=== PATIENT | male | born 1935 | race Caucasian/White ===

== ENCOUNTER 2019-01-17 19:04 | Inpatient (IN) | payer MEDICARE, BC ==
[~2019-01-17] VITALS: Ht 175.3 cm; Wt 71.2 kg
[2019-01-17 09:45] VITALS: BP 157/70
[2019-01-17] MEDS ORDERED: IV NS 0.9% 500 ML BAG IV ONE (19:30)
--- NOTE | 2019-01-17 19:33 | NUR ---
[id number] FROM HOME, WITNESSED SYNCOPAL EPISODE, +KO ON THE COUCH, NO FALL, BG 136. TO ER BED 4 VSS SEEN BY MD ORDERS RECEIVED AND CARRIERD OUT. PT IN COMFORTABLE POSITION, NO COMPLAINT OF PAIN DIZZINES OR DISCOMOFRT AT THIS TIME, CONNECTED TO CHOKE SETTER.
[2019-01-17 19:34] LABS: BASOPHILS # (AUTO) 0.2 /CMM (0.0-0.2); BASOPHILS % (AUTO) 2.6 % (0.0-2.0); EOSINOPHILS % (AUTO) 2.4 % (0.0-6.0); HEMATOCRIT 38 % (39-51); HEMOGLOBIN 12.7 g/dL (13.5-17.5); LYMPHOCYTES # (AUTO) 2.6 /CMM (0.8-4.8); LYMPHOCYTES % (AUTO) 37.9 % (20.0-44.0); MEAN CORPUSCULAR HGB CONC 34 g/dl (31.0-36.0); MEAN CORPUSCULAR VOLUME 92 fL (80-96); MONOCYTES # (AUTO) 0.8 /CMM (0.1-1.30); MONOCYTES % (AUTO) 11.4 % (2.0-12.0); NEUTROPHILS # (AUTO) 3.1 /CMM (1.8-8.9); NEUTROPHILS % (AUTO) 45.7 % (43.0-81.0); PLATELET COUNT (AUTO) 207 /CMM (150-450); RED BLOOD CELL COUNT(AUTO) 4.08 MIL/uL (4.5-6.0); WHITE BLOOD COUNT (AUTO) 6.9 K/uL (4.3-11.0)
[2019-01-17 19:39] LABS: CALCIUM, SERUM 9.1 mg/dL (8.5-10.1); CARBON DIOXIDE 28 mmol/L (21-32); CHLORIDE 103 mmol/L (98-107); GLUCOSE 127 mg/dL (74-106); POTASSIUM 3.8 mmol/L (3.5-5.1); SODIUM SERUM 138 mmol/L (136-145); UREA NITROGEN, BLOOD 28 mg/dL (7-18)
[2019-01-17 19:45] LABS: ALANINE AMINOTRANSFERASE 20 U/L (12-78); ALBUMIN 3.6 g/dL (3.4-5.0); ALKALINE PHOSPHATASE 81 U/L (46-116); ASPARTATE AMINOTRANSFERASE 22 U/L (15-37); BILIRUBIN,DIRECT 0.1 mg/dL (0.0-0.2); BILIRUBIN,TOTAL 0.2 mg/dL (0.2-1.0); TOTAL PROTEIN, SERUM 7.6 g/dL (6.4-8.2)
[2019-01-17] MEDS ORDERED: CALC600T12 PO (20:29)
[2019-01-17] MEDS ORDERED: MULT1TAB73 PO (20:29)
[2019-01-17] MEDS ORDERED: ASPI-1169 PO (20:30)
[2019-01-17] MEDS ORDERED: ATOR10TA PO (20:30)
[2019-01-17] MEDS ORDERED: MEMA10TA PO (20:31)
[2019-01-17] MEDS ORDERED: FOLI1TAB16 PO (20:31)
[2019-01-17] MEDS ORDERED: AMLO10TA4 PO (20:31)
[2019-01-17] MEDS ORDERED: MAGN400T6 PO (20:32)
[2019-01-17] MEDS ORDERED: DONE5TAB7 PO (20:32)
[2019-01-17] MEDS ORDERED: ETAN50SY SUBCUT (20:33)
[2019-01-17] MEDS ORDERED: IV NS 0.9% 1,000 ML IV PRN (20:53)
[2019-01-17] MEDS ORDERED: TAMS-12 PO (20:54)
[2019-01-17] MEDS ORDERED: ONDANSETRON HCL/PF 4 MG/2 ML VIAL IVP PRN (21:00)
[2019-01-17] MEDS ORDERED: ACETAMINOPHEN 325 MG TABLET PO PRN (21:00)
[2019-01-17] MEDS ORDERED: MORPHINE SULFATE INJ 2 MG/ML DISP.SYRIN IV PRN (21:00)
[2019-01-17] MEDS ORDERED: HYDROCODONE/APAP 5/325MG 1 EACH TABLET PO PRN (21:00)
--- NOTE | 2019-01-17 21:16 | NUR ---
called in report to marilu adams
--- NOTE | 2019-01-17 21:20 | NUR ---
PT TAKEN TO CT
--- NOTE | 2019-01-17 21:30 | NUR ---
PT BACK FROM CT
[2019-01-17 21:37] LABS: BAND % (MANUAL) 1 % (0.0-5.0); EOSINOPHILS % (MANUAL) 1 % (0-4); LYMPHOCYTES % (MANUAL) 24 % (16-48); MONOCYTES % (MANUAL) 18 % (0-11.0); NEUTROPHILS % (MANUAL) 55 (42-76); REACTIVE LYMPHOCYTES 1 % (0-0)
[2019-01-17 21:45] VITALS: BP 157/70
--- NOTE | 2019-01-17 21:50 | NUR ---
PT TRANSPORTED TO FLOOR VIA [facility] PROTOCOL
[2019-01-17 22:00] VITALS: BP_SYST 101; BP_SYST 148; BP_SYST 157; BP_DIAS 65; BP_DIAS 70; BP_DIAS 74
--- NOTE | 2019-01-17 22:00 | NUR ---
HOOD FITTERFOOD TECHNICIAN NOTES RECEIVED PATIENT FROM ER VIA [facility] ACCOMPANIED BY ER STAFFS AND FAMILIES. ALERT AND ORIENTED X 3. VERBALLY RESPONSIVE AND ABLE TO FOLLOW DIRECTIONS. REQUESTED IF HE CAN GO TO THE RESTROOM, ASSISTED ON WALKING. BOWEL AND BLADDER CONTINENT, HAD A BOWEL MOVEMENT WITH FORMED DARK BROWN STOOL SEEN. URINE CLEAR YELLOW. ASSISTED BACK TO BED. BREATHING REGULAR AND UNLABORED ON ROOM AIR. LEFT HAND G18 AND RIGHT AC G20 IV LINES INTACT AND PATENT, FLUSHING WELL WITH NO BLEEDING OR S/S OF INFECTION/INFILTRATION NOTED. STARTED ON IV NS AT 75CC/HR, INFUSING WELL. BODY ASSESSMENTS DONE, PHOTO TAKEN. KEPT ON THE CHART. ATTACHED ON DIRECT SUPPORT PROFESSIONAL WITH SINUS BRADYCARDIA AT 59bpm. BELONGINGS CHECKED AND ACCOUNTED FOR BY ON BEDSIDE. BED LOW AND LOCKED ON SEMI FOWLERS POSITION. CALL LIGHT IN REACH. WILL CONTINUE TO MONITOR.
[2019-01-17] MEDS: TAMSULOSIN 0.4 MG CAP.SR.24H PO SCH (22:14)
[2019-01-18] VITALS (9 sets, daily range): BP systolic 96–152; BP diastolic 49–68
--- NOTE | 2019-01-18 04:00 | NUR ---
YOKER NOTES REASSESSED ORTHOSTATIC BLOOD PRESSURES: SUPINE 119/57, SITTING 129/68, STANDING 96/49. NO COMPLAINTS OF DIZZINESS, PAIN OR DISCOMFORT REPORTED. ASSISTED TO GO TO THE RESTROOM. WILL CONTINUE TO MONITOR.
--- NOTE | 2019-01-18 06:35 | NUR ---
FOREIGN LANGUAGE INSTRUCTOR CLOSING NOTES PATIENT IN BED, ALERT AND ORIENTED X 3. VERBALLY RESPONSIVE AND ABLE TO FOLLOW DIRECTIONS. BREATHING REGULAR AND UNLABORED ON ROOM AIR. RIGHT AC G20 IV LINE INTACT AND PATENT, INFUSING WELL WITH NO BLEEDING OR S/S OF INFECTION/INFILTRATION NOTED. MAINTAINED ON RESPITE COORDINATOR WITH NSR AT 68bpm. NO COMPLAINTS OF DIZZINESS, PAIN/DISCOMFORT REPORTED WITHIN THE SHIFT. BED LOW AND LOCKED ON SEMI FOWLERS POSITION. CALL LIGHT IN REACH. WILL ENDORSE TO MORNING SHIFT FOR TIEN.
[2019-01-18 06:54] LABS: BASOPHILS % (AUTO) 0.4 % (0.0-2.0); EOSINOPHILS % (AUTO) 1.3 % (0.0-6.0); HEMATOCRIT 34 % (39-51); HEMOGLOBIN 11.9 g/dL (13.5-17.5); LYMPHOCYTES # (AUTO) 1.5 /CMM (0.8-4.8); MEAN CORPUSCULAR HGB CONC 35 g/dl (31.0-36.0); MEAN CORPUSCULAR VOLUME 92 fL (80-96); MONOCYTES % (AUTO) 13.2 % (2.0-12.0); NEUTROPHILS # (AUTO) 4.9 /CMM (1.8-8.9); NEUTROPHILS % (AUTO) 65.1 % (43.0-81.0); PLATELET COUNT (AUTO) 190 /CMM (150-450); RED BLOOD CELL COUNT(AUTO) 3.74 MIL/uL (4.5-6.0); WHITE BLOOD COUNT (AUTO) 7.5 K/uL (4.3-11.0)
--- NOTE | 2019-01-18 07:00 | NUR ---
MARINE MACHINIST NOTES PATIENT IN BED ALERT ORIENTED X 3. NO ACUTE DISTRESS NOTED. NO SOB NOTED. BREATHING UNLABORED. IV ACCESS PATENT AND INTACT, NO REDNESS OR SWELLING NOTED. NO BLEEDING NOTED. SAFETY MEASURES IN PLACE. CALL LIGHT WITHIN REACH. WILL CONTINUE TO MONITOR ACCORDINGLY.
[2019-01-18 07:11] LABS: CHOLESTEROL 133 mg/dL (<200); HDL CHOLESTEROL 41 mg/dL (40-60); LDL 66 mg/dL (0-99); THYROID STIMULATING HORMONE 1.538 uIU/mL (0.358-3.74); TRIGLYCERIDES 186 mg/dL (30-150)
[2019-01-18 07:16] LABS: CALCIUM, SERUM 8.3 mg/dL (8.5-10.1); CARBON DIOXIDE 24 mmol/L (21-32); CHLORIDE 107 mmol/L (98-107); CREATININE 1.6 mg/dL (0.6-1.3); GLUCOSE 106 mg/dL (74-106); MAGNESIUM 2.4 mg/dL (1.8-2.4); PHOSPHORUS 3.3 mg/dL (2.5-4.9); POTASSIUM 4.4 mmol/L (3.5-5.1); SODIUM SERUM 140 mmol/L (136-145); UREA NITROGEN, BLOOD 23 mg/dL (7-18)
[2019-01-18] MEDS: FOLIC ACID 1 MG TABLET PO SCH (08:39)
[2019-01-18] MEDS: MULTIVITAMINS,THERAGRAN 1 UDTAB TABLET PO SCH (08:39)
[2019-01-18] MEDS: ASPIRIN 81 MG TAB.CHEW PO SCH (08:39)
[2019-01-18] MEDS: ATORVASTATIN 10 MG TABLET PO SCH (08:40)
[2019-01-18] MEDS: MEMANTINE HCL 5 MG TABLET PO SCH ×2 (08:40→16:38)
[2019-01-18] MEDS: AMLODIPINE BESYLATE 10 MG TABLET PO SCH (08:40)
[2019-01-18] MEDS ORDERED: DONEPEZIL 5 MG TABLET PO SCH (18:00)
--- NOTE | 2019-01-18 19:00 | NUR ---
PRINTING AND STAMPING SUPERVISOR NOTES PATIENT IN BED ALERT ORIENTED X 3. NO ACUTE DISTRESS NOTED. NO SOB NOTED. BREATHING UNLABORED. IV ACCESS PATENT AND INTACT, NO REDNESS OR SWELLING NOTED. DUE MEDICATIONS GIVEN. NO ASE NOTED. NEEDS ATTENDED AND ANTICIPATED. KEPT CLEAN DRY AND CONFORTABLE. SAFETY MEASURES IN PLACE. CALL LIGHT WITHIN REACH. WILL ENDORSE TO NIGHT NURSE FOR CONTINUITY OF CARE.
--- NOTE | 2019-01-18 19:30 | NUR ---
SHEET METAL PRODUCTION WORKER NOTES RECEIVED ON BED A/O X4,BREATHING REGULAR,NOT IN ANY FORM DISTRESS,IVF INFUSING AND NOTED LEAKING ON SITE.AMBULATE WITH STEADY GAIT.CALL LIGHT IN REACH,NEEDS ANTICIPATED.
--- NOTE | 2019-01-18 19:35 | NUR ---
CAGER OPERATOR NOTES NEW SALINE LOCK PLACE ON RIGHT FORE ARM #22,SAME IVF INFUSING AT THIS TIME.
--- NOTE | 2019-01-18 20:31 | NUR ---
WHIPPER BEATER NOTES SR-69 ON TELE MONITOR
[2019-01-18] MEDS: TAMSULOSIN 0.4 MG CAP.SR.24H PO SCH ×2 (21:11→21:18)
--- NOTE | 2019-01-18 21:54 | NUR ---
CREEL SELECTOR NOTES PATIENT REFUSED FLOMAX
--- NOTE | 2019-01-19 01:00 | NUR ---
TUBE CARRIER NOTES AWAKE,HE WENT TO THE RESTROOM TO PEE.
--- NOTE | 2019-01-19 01:15 | NUR ---
SOFTWARE RELEASE MANAGER NOTES TOOK PICTURE ON BOTH ARMS,REFUSED FURTHER BODY CHECKED AND PICTURES
--- NOTE | 2019-01-19 01:15 | NUR ---
SOUND RANGING CREWMEMBER NOTES HE PULLET OUT IV TUBINGS,OFFERED TO GAVE A NEW ONE BUT REFUSED
--- NOTE | 2019-01-19 04:30 | NUR ---
COLLABORATING SUPERVISING PHYSICIAN NOTES REFUSED VITAL SIGNS THIS TIME
--- NOTE | 2019-01-19 05:55 | NUR ---
CALL SPECIALIST NOTES SLEPT WITH INTERVALS,NO IV ACCESS,REFUSED TO HAVE A NEW SALINE LOCK.REFUSED 4AM VITAL SIGNS.IN NO ACUTE DISTRESS.WILL ENDORSE TO DAY NURSE FOR TIEN.
--- NOTE | 2019-01-19 06:03 | NUR ---
BARREL MAKER NOTES REFUSED BLOOD DRAW AT THIS TIME.
--- NOTE | 2019-01-19 06:15 | NUR ---
NUMBERER AND WIRER NOTES TOOK OFF TELE BOX.HE DRESSED UP AND HE WANTS TO LEAVE WITHOUT BEING SEEN BY HOSPITALIST.CALLED NAME ROSARIO AND SPOKE TO PATIENT BELEN,WILL COME TO THE HOSPITAL AND WAIT FOR HOSPITALIST TO SEE PATIENT AND FOR POSSIBLE DISCHARGE.IN ROOM RIGHT NOW WAITING FOR THE .NO DISTRESS.NO SALINE LOCK,NO TELE MONITOR.STILL REFUSED VITAL SIGNS.
--- NOTE | 2019-01-19 07:30 | NUR ---
COMPENSATION VICE PRESIDENT OPENING NOTES RECEIVED PATIENT SITTING ON A CHAIR ON SIDE OF THE BED. NO IV ACCESS, NOT ON TELE MONITOR, NO ID BAND, PER CERTIFIED NURSING ATTENDANT NURSE, PATIENT REMOVED IT AND WANTS TO GO HOME. PATIENT STATES THAT HE WANTS TO GO HOME, JUST WAITING FOR HIS . MD AWARE. WILL CONTINUE TO MONITOR.
[2019-01-19 08:00] VITALS: BP 163/68
[2019-01-19] MEDS: FOLIC ACID 1 MG TABLET PO SCH (09:00)
[2019-01-19] MEDS: MULTIVITAMINS,THERAGRAN 1 UDTAB TABLET PO SCH (09:00)
[2019-01-19] MEDS: MEMANTINE HCL 5 MG TABLET PO SCH (09:00)
[2019-01-19] MEDS: ASPIRIN 81 MG TAB.CHEW PO SCH (09:00)
[2019-01-19] MEDS: AMLODIPINE BESYLATE 10 MG TABLET PO SCH (09:00)
[2019-01-19] MEDS: ATORVASTATIN 10 MG TABLET PO SCH (09:00)
[2019-01-19 10:16] VITALS: BP_SYST 130; BP_SYST 147; BP_SYST 99; BP_DIAS 52; BP_DIAS 64; BP_DIAS 69
--- NOTE | 2019-01-19 11:45 | NUR ---
SUPERVISOR HOME ECONOMICS NOTES PATIENT DISCHARGED IN STABLE CONDITION. A/O X4. ABLE TO MAKE NEEDS KNOWN. V/S TAKEN, STABLE AND RECORDED. RECEIVED PATIENT WITHOUT IV ACCESS AND NO ARM BAND. PATIENT REMOVED IT, PER PAPER ROLL MACHINE OPERATOR NURSE. REFUSE SKIN ASSESSMENT. ALL BELONGINGS CHECKED AND SIGNED. HEALTH TEACHINGS/DISCHARGED INSTRUCTIONS GIVEN AND VERBALIZED UNDERSTANDING. PATIENT LEFT UNIT AMBULATORY WITH , LEFT IN NO ACUTE SIGNS OF DISTRESS. CHARGE NURSE AWARE OF DISCHARGE.
[2019-01-23] MEDS ORDERED: ETANERCEPT 50 MG SQ SCH (09:00)
== END 2019-01-19 11:39 | disposition home or self-care (01) | DRG 312 ==
LOC: ER 19:08 → TELE 21:27 → MED 01-19 08:30
PROVIDERS: ADMIT Nurse Practitioner Acute Care
DX: I95.1 Orthostatic hypotension (principal); N17.0 Acute kidney failure with tubular necrosis; J90 Pleural effusion, not elsewhere classified; N13.2 Hydronephrosis with renal and ureteral calculous obstruction; M06.9 Rheumatoid arthritis, unspecified; E78.5 Hyperlipidemia, unspecified; F03.90 Unspecified dementia, unspecified severity, without behavioral disturbance, psychotic disturbance, mood disturbance, and anxiety; Z85.46 Personal history of malignant neoplasm of prostate; Z90.79 Acquired absence of other genital organ(s); Z87.442 Personal history of urinary calculi; Z82.3 Family history of stroke; Z79.899 Other long term (current) drug therapy; Z79.82 Long term (current) use of aspirin; E86.1 Hypovolemia; K57.90 Diverticulosis of intestine, part unspecified, without perforation or abscess without bleeding; T44.6X5A Adverse effect of alpha-adrenoreceptor antagonists, initial encounter; Y92.9 Unspecified place or not applicable
CPT/HCPCS: 36415; 71045-TC; 80048-TC; 80061-TC; 80076-TC; 83735-TC; 84100-TC; 84443-TC; 84484-TC; 85025-TC; 87081-TC; 93307-TC; 97116-TC; 97530-TC; G0378; J7030

== ENCOUNTER 2019-04-07 12:35 | Inpatient (IN) | payer MEDICARE, BC ==
[~2019-04-07] VITALS: Ht 175.3 cm; Wt 73.9 kg
[~2019-04-07 12:35] MED LIST: AMLO10TA4 PO; ASPI-1169 PO; ATOR10TA PO; CALC600T12 PO; DONE5TAB7 PO; ETAN50SY SQ; FOLI1TAB16 PO; MAGN400T8 PO; MEMA10TA PO; MULT1TAB73 PO
--- NOTE | 2019-04-07 13:09 | NUR ---
patient bib c/o "Has been in the hospital recently since then been weak having balance problems this am worse-fell down in bathroom at 930am. Arm numb yesterday". On room air,breathing evenly and unlabored. connected to the monitor and pulse ox. kept comfortable, will continue to monitor accordingly.
[2019-04-07 13:18] LABS: BASOPHILS # (AUTO) 0.1 /CMM (0.0-0.2); BASOPHILS % (AUTO) 0.7 % (0.0-2.0); EOSINOPHILS % (AUTO) 0.2 % (0.0-6.0); HEMATOCRIT 32 % (39-51); HEMOGLOBIN 10.7 g/dL (13.5-17.5); LYMPHOCYTES # (AUTO) 1.2 /CMM (0.8-4.8); LYMPHOCYTES % (AUTO) 10.2 % (20.0-44.0); MEAN CORPUSCULAR HGB CONC 33 g/dl (31.0-36.0); MEAN CORPUSCULAR VOLUME 92 fL (80-96); MONOCYTES # (AUTO) 1.7 /CMM (0.1-1.30); MONOCYTES % (AUTO) 14.2 % (2.0-12.0); NEUTROPHILS # (AUTO) 9.2 /CMM (1.8-8.9); NEUTROPHILS % (AUTO) 74.7 % (43.0-81.0); PLATELET COUNT (AUTO) 423 /CMM (150-450); RED BLOOD CELL COUNT(AUTO) 3.49 MIL/uL (4.5-6.0); WHITE BLOOD COUNT (AUTO) 12.3 K/uL (4.3-11.0)
[2019-04-07 13:25] LABS: CALCIUM, SERUM 9.3 mg/dL (8.5-10.1); CARBON DIOXIDE 27 mmol/L (21-32); CHLORIDE 102 mmol/L (98-107); CREATININE 1.1 mg/dL (0.6-1.3); GLUCOSE 111 mg/dL (74-106); POTASSIUM 4.2 mmol/L (3.5-5.1); SODIUM SERUM 137 mmol/L (136-145); UREA NITROGEN, BLOOD 21 mg/dL (7-18)
[2019-04-07 13:32] LABS: ALANINE AMINOTRANSFERASE 97 U/L (12-78); ALBUMIN 2.4 g/dL (3.4-5.0); ALKALINE PHOSPHATASE 126 U/L (46-116); ASPARTATE AMINOTRANSFERASE 67 U/L (15-37); BILIRUBIN,DIRECT 0.1 mg/dL (0.0-0.2); BILIRUBIN,TOTAL 0.4 mg/dL (0.2-1.0); TOTAL PROTEIN, SERUM 7.3 g/dL (6.4-8.2)
[2019-04-07] MEDS ORDERED: UBID100C13 PO (13:34)
[2019-04-07] MEDS ORDERED: MEMA28CA5 PO (13:34)
[2019-04-07] MEDS ORDERED: ASPIRIN 325 MG TABLET ONE (13:45)
[2019-04-07] MEDS ORDERED: ASPIRIN 325 MG TABLET PO ONE (14:00)
[2019-04-07 14:05] LABS: CHOLESTEROL 101 mg/dL (<200); HDL CHOLESTEROL 36 mg/dL (40-60); LDL 54 mg/dL (0-99); TRIGLYCERIDES 92 mg/dL (30-150)
[2019-04-07] MEDS ORDERED: IV NS 0.9% 1,000 ML IV PRN (14:38)
[2019-04-07] MEDS ORDERED: ONDANSETRON HCL/PF 4 MG/2 ML VIAL IVP PRN (15:00)
[2019-04-07] MEDS ORDERED: MAG HYDROX/AL HYDROX/SIMETH 30 ML UDC PO PRN (15:00)
[2019-04-07] MEDS ORDERED: MAGNESIUM HYDROXIDE 30 ML UDC PO PRN (15:00)
[2019-04-07] MEDS ORDERED: ZOLPIDEM TARTRATE 5 MG TABLET PO PRN (15:00)
[2019-04-07] MEDS ORDERED: HYDROCODONE/APAP 5/325MG 1 EACH TABLET PO PRN (15:00)
[2019-04-07] MEDS ORDERED: ENOXAPARIN SODIUM 40 MG/0.4 ML DISP.SYRIN SQ SCH ×2 (15:00→21:00)
[2019-04-07] MEDS ORDERED: Z GUARD REMEDY 2 OZ OINT TP PRN (15:00)
[2019-04-07] MEDS ORDERED: ACETAMINOPHEN 325 MG TABLET PO PRN (15:00)
--- NOTE | 2019-04-07 15:01 | NUR ---
BED ASSIGNED 320-1
--- NOTE | 2019-04-07 15:15 | NUR ---
report given to Amberly WAITE for martita.
[2019-04-07 16:00] VITALS: BP 119/64
--- NOTE | 2019-04-07 16:05 | NUR ---
BENDING ROLL OPERATORSECURITY FLEX OFFICER NOTES Received Patient via gurney at this time. A/O x 4. VS stable with no acute distress. Breathing even and unlabored on room air with no respiratory distress. Denies pain. Skin assessment pictures taken and placed in chart. Telemonitor in place and patent reading SR with HR-65. 20g PIV on LFA clean, intact, patent and flushing well. Safety precautions in place. Bed locked and set to lowest position with side rails x 2 up. All needs rendered at this time. Call light within reach. Family at bedside. Will continue to monitor.
--- NOTE | 2019-04-07 16:15 | NUR ---
wheeled patient via gurney accompanied by RN and emt in no distress, Amberly RN at bedside to assume care
--- NOTE | 2019-04-07 19:40 | NUR ---
COVERAGE ANALYST CLOSING NOTES Patient awake and resting in bed. A/O x 4. VS stable with no acute distress. Breathing even and unlabored on room air with no respiratory distress. Denies pain. Telemonitor in place and patent reading SR with HR-63. 20g PIV on LFA clean, intact, patent and flushing well with NS infusing at 75ml/hr. Safety precautions in place. Bed locked and set to lowest position with side rails x 2 up. All needs rendered at this time. Call light within reach. Will endorse plan of care to oncoming shift.
--- NOTE | 2019-04-07 19:55 | NUR ---
TELE/RN OPENING NOTES RECEIVED PATIENT IN BED, ALERT, ORIENTED X 3 ABLE TO VERBALIZE NEEDS, RESPIRATIONS EVEN AND UNLABORED, SKIN WARM TO TOUCH, WATCHING TV, NO GRIMACE OR GUARDING, BELONGINGS AND CALL LIGHTS WITHIN REACH, RECEIVED ENDORSEMENT FROM AM RN FOR TIEN. WILL MONITOR, BED LOCK, CALL LIGHTS WITHIN REACH.
[2019-04-07 20:00] VITALS: BP 130/71
[2019-04-07 20:26] VITALS: BP 130/71
--- NOTE | 2019-04-07 20:51 | NUR ---
TELE/RN NOTES LOVENOX SQ TO ADMINISTER, VERIFIED WITH PHARMACY. PATIENT REQUESTING FOR AMBIEN TO HELP HIM SLEEP. TO ADMINISTER.
--- NOTE | 2019-04-07 23:34 | NUR ---
TELE/RN NOTES PATIENT PULLED OUT IV TWICE, WANTING TO GO HOME, WAS CONTACTED AND CALLED PATIENT WAS ABLE TO SPEAK WITH . PATIENT REFUSED IV FLUIDS AND HURRIEDLY WANT TO LEAVE, HAD REQUESTED AMBIEN FOR SLEEP EARLIER AND A NEW ADMISSION PATIENT CAME IN THE ROOM,BEHAVIOR IMPULSIVE. . VERBALIZED TO PATIENT HE HAS TO STAY IN HOSPITAL AND CAN NOT LEAVE, PATIENT VERBALIZED UNDERSTANDING , WILL MONITOR.
[2019-04-08] VITALS: BP 151/67
[2019-04-08 04:00] VITALS: BP 114/73
[2019-04-08 06:33] LABS: BASOPHILS # (AUTO) 0.1 /CMM (0.0-0.2); BASOPHILS % (AUTO) 0.7 % (0.0-2.0); EOSINOPHILS % (AUTO) 0.9 % (0.0-6.0); HEMATOCRIT 31 % (39-51); HEMOGLOBIN 10.4 g/dL (13.5-17.5); LYMPHOCYTES # (AUTO) 1.4 /CMM (0.8-4.8); LYMPHOCYTES % (AUTO) 16.8 % (20.0-44.0); MEAN CORPUSCULAR HGB CONC 34 g/dl (31.0-36.0); MEAN CORPUSCULAR VOLUME 90 fL (80-96); MONOCYTES # (AUTO) 1.2 /CMM (0.1-1.30); MONOCYTES % (AUTO) 14.4 % (2.0-12.0); NEUTROPHILS # (AUTO) 5.6 /CMM (1.8-8.9); NEUTROPHILS % (AUTO) 67.2 % (43.0-81.0); PLATELET COUNT (AUTO) 395 /CMM (150-450); RED BLOOD CELL COUNT(AUTO) 3.37 MIL/uL (4.5-6.0); WHITE BLOOD COUNT (AUTO) 8.3 K/uL (4.3-11.0)
--- NOTE | 2019-04-08 06:40 | NUR ---
320-1 TI PATIENT ABLE TO SLEEP FEW HOURS. ALERT X3 WITH PERIOD OF CONFUSION. REQUIRE REORIENTATION.RESPIRATIONS EVEN AND UNLABORED. BED LOCKED, CALL LIGHTS WITHIN REACH. OFFERED FLUIDS AND SNACKS. WILL CONTINUE TO MONITOR. WILL ENDORSE TO AM RN FOR TIEN. TELE READING AT SR WITH PAC.
[2019-04-08 07:01] LABS: CALCIUM, SERUM 8.5 mg/dL (8.5-10.1); CREATININE 1.1 mg/dL (0.6-1.3); MAGNESIUM 2.1 mg/dL (1.8-2.4); PHOSPHORUS 2.9 mg/dL (2.5-4.9)
[2019-04-08 07:02] LABS: THYROID STIMULATING HORMONE 1.311 uIU/mL (0.358-3.74)
[2019-04-08 07:47] LABS: APPEARANCE,URINE CLEAR (CLEAR); BILIRUBIN,URINE NEGATIVE (NEGATIVE); BLOOD, URINE TRACE-INTA Ery/uL (NEGATIVE); COLOR,URINE ORANGE (YELLOW); KETONES,URINE NEGATIVE (NEGATIVE); LEUKOCYTE ESTERASE ,URINE NEGATIVE (NEGATIVE); NITRITE, URINE NEGATIVE (NEGATIVE); PH,URINE 7.5 (5.0-8.0); PROTEIN,URINE NEGATIVE (NEGATIVE); UGLUCOSE NEGATIVE (NEGATIVE); UROBILINOGEN,URINE 0.2 EU/dL (0.2)
--- NOTE | 2019-04-08 08:08 | NUR ---
TELE/RN OPENING NOTES RECEIVED PATIENT LYING ON BED COMFORTABLY. DENIES PAIN AT THIS TIME. NO RESPIRATORY DISTRESS NOTED. BED IN LOWEST AND LOCKED. SIDE RAILS UP X2. PATIENT IS ON TELE MONITOR IN PLACE SINUS RHYTHM 62. PATIENT IS ALERT AND ORIENTED X3 WITH PERIOD OF CONFUSION. REQUIRE REORIENTATION. RESPIRATIONS EVEN AND UNLABORED. BED IN LOWEST POSITION AND LOCKED, CALL LIGHTS WITHIN REACH. WILL CONTINUE TO MONITOR.
[2019-04-08] MEDS ORDERED: ASPIRIN 81 MG TAB.CHEW PO SCH (09:00)
[2019-04-08] MEDS ORDERED: FOLIC ACID 1 MG TABLET PO SCH (09:00)
[2019-04-08] MEDS ORDERED: MEMANTINE HCL 5 MG TABLET PO SCH (09:00)
[2019-04-08] MEDS ORDERED: ATORVASTATIN 10 MG TABLET PO SCH (09:00)
[2019-04-08] MEDS ORDERED: DONEPEZIL 5 MG TABLET PO SCH (09:00)
[2019-04-08] MEDS ORDERED: IOHEXOL-350 100 ML VIAL IV ONE (10:50)
[2019-04-08] MEDS ORDERED: IV NS 0.9% 250 ML IV ONE (10:50)
[2019-04-08] MEDS ORDERED: CT SWABBABLE VALVE TRANS SET 1 EA INFUS.SET MC ONE (10:50)
--- NOTE | 2019-04-08 10:50 | NUR ---
TELE/RN NOTES PATIENT IS OUT IN THE UNIT FOR CT ANGIOGRAM OF BRAIN AND CAROTID.
--- NOTE | 2019-04-08 11:15 | NUR ---
TELE/RN NOTES PATIENT IS BACK IN THE UNIT FROM RADIOLOGY.
--- NOTE | 2019-04-08 16:10 | NUR ---
MS/RN NOTES PATIENT IS ALERT AND ORIENTED X3. PATIENT DENIES ANY PAIN. AT THIS TIME. NO APPARENT DISTRESS NOTED. IN ROOM AIR AND SATURATION IS AT 98%. RESPIRATION REGULAR AND UNLABORED. THE PATIENT VERBALIZED WANTED TO LEAVE THE HOSPITAL AMA. THE PATIENT GIVEN RISK AND BENEFITS HOWEVER PATIENT WANTS TO LEAVE AMA. THE PATIENT LEFT THE HOSPITAL WITH . MD IS AWARE.
== END 2019-04-08 16:10 | disposition left against medical advice (07) | DRG 552 ==
LOC: ER 12:35 → TELE 15:01 → MED 04-08 10:01
DX: M50.322 Other cervical disc degeneration at C5-C6 level (principal); F02.80 Dementia in other diseases classified elsewhere, unspecified severity, without behavioral disturbance, psychotic disturbance, mood disturbance, and anxiety; N39.0 Urinary tract infection, site not specified; R26.0 Ataxic gait; M48.02 Spinal stenosis, cervical region; R20.2 Paresthesia of skin; G30.9 Alzheimer's disease, unspecified; D72.829 Elevated white blood cell count, unspecified; K42.9 Umbilical hernia without obstruction or gangrene; Z79.82 Long term (current) use of aspirin; Z79.899 Other long term (current) drug therapy; E78.5 Hyperlipidemia, unspecified; G62.9 Polyneuropathy, unspecified; I10 Essential (primary) hypertension; I67.2 Cerebral atherosclerosis; I65.02 Occlusion and stenosis of left vertebral artery; M25.78 Osteophyte, vertebrae; M43.12 Spondylolisthesis, cervical region; W19.XXXA Unspecified fall, initial encounter; Z85.46 Personal history of malignant neoplasm of prostate; M53.82 Other specified dorsopathies, cervical region; Z87.442 Personal history of urinary calculi
CPT/HCPCS: 36415; 70450-TC; 70496-TC; 70498-TC; 71045-TC; 72125-TC; 80048-TC; 80061-TC; 80076-TC; 81000-TC; 83735-TC; 84100-TC; 84443-TC; 84484-TC; 85025-TC; 85730-TC; 87081-TC; 87086-TC; 97116-TC; 97530-TC; G0378; J1650; J7030; J7050; Q9967

== ENCOUNTER 2024-07-12 20:11 | Inpatient (IN) | payer MEDICARE, BC ==
[~2024-07-12] VITALS: Ht 172.7 cm; Wt 83.0 kg
[~2024-07-12 20:11] MED LIST changes: +CALC-1143 PO; -CALC600T12 PO; -MEMA10TA PO; +MEMA28CA5 PO; +MULT-754 PO; -MULT1TAB73 PO; +UBID100C13 PO
[2024-07-12 20:35] LABS: BASOPHILS # (AUTO) 0.1 K/uL (0.0-0.2); BASOPHILS % (AUTO) 0.3 % (0.0-2.0); EOSINOPHILS % (AUTO) 0.3 % (0.0-6.0); HEMATOCRIT 33 % (39-51); HEMOGLOBIN 10.8 g/dL (13.5-17.5); LYMPHOCYTES # (AUTO) 1.9 K/uL (0.8-4.8); LYMPHOCYTES % (AUTO) 11.9 % (20.0-44.0); MEAN CORPUSCULAR HEMOGLOBIN 29 PG (26.0-33.0); MEAN CORPUSCULAR HGB CONC 33 g/dl (31.0-36.0); MEAN CORPUSCULAR VOLUME 87 fL (80-96); MONOCYTES # (AUTO) 1.8 K/uL (0.1-1.30); MONOCYTES % (AUTO) 11.6 % (2.0-12.0); NEUTROPHILS # (AUTO) 11.9 K/uL (1.8-8.9); NEUTROPHILS % (AUTO) 75.9 % (43.0-81.0); PLATELET COUNT (AUTO) 245 K/uL (150-450); RED BLOOD CELL COUNT(AUTO) 3.79 MIL/uL (4.5-6.0); RED CELL DISTRIBUTION WIDTH 16.2 % (11.5-15.0); WHITE BLOOD COUNT (AUTO) 15.7 K/uL (4.3-11.0)
[2024-07-12 20:45] LABS: CALCIUM, SERUM 9.3 mg/dL (8.5-10.1); CARBON DIOXIDE 21 mmol/L (21-32); CHLORIDE 104 mmol/L (98-107); CREATININE 1.9 mg/dL (0.6-1.3); GLUCOSE 196 mg/dL (74-106); POTASSIUM 3.9 mmol/L (3.5-5.1); SODIUM SERUM 141 mmol/L (136-145); UREA NITROGEN, BLOOD 23 mg/dL (7-18)
[2024-07-12 20:51] LABS: ALANINE AMINOTRANSFERASE 19 U/L (12-78); ALKALINE PHOSPHATASE 102 U/L (46-116); ASPARTATE AMINOTRANSFERASE 35 U/L (15-37); BILIRUBIN,DIRECT 0.1 mg/dL (0.0-0.2); BILIRUBIN,TOTAL 0.5 mg/dL (0.2-1.0); TOTAL PROTEIN, SERUM 7.3 g/dL (6.4-8.2)
[2024-07-12] MEDS ORDERED: Z GUARD REMEDY 4 OZ OINT TP PRN (22:00)
[2024-07-12] MEDS ORDERED: MAGNESIUM HYDROXIDE 30 ML UDC PO PRN (22:00)
[2024-07-12] MEDS ORDERED: ACETAMINOPHEN 325 MG TABLET PO PRN (22:00)
[2024-07-12] MEDS ORDERED: ONDANSETRON HCL/PF 4 MG/2 ML VIAL IVP PRN (22:00)
[2024-07-12] MEDS ORDERED: MAG HYDROX/AL HYDROX/SIMETH 30 ML UDC PO PRN (22:00)
[2024-07-12] MEDS ORDERED: CIPROFLOXACIN IV RTU 400 MG in PREMIX 1 EA IV SCH (22:30)
[2024-07-12 23:00] VITALS: BP 163/76; TEMP 97.8; O2SAT 97
[2024-07-12] MEDS ORDERED: CIPROFLOXACIN IV RTU 200 ML IV ONE (23:11)
[2024-07-12] MEDS ORDERED: METRONIDAZOLE 500MG/ NS 100ML 100 ML IV ONE (23:11)
[2024-07-12] MEDS: IV NS 0.9% 1,000 ML IV PRN (23:18)
[2024-07-12] MEDS: METRONIDAZOLE 500MG/ NS 100ML 500 MG in PREMIX 1 EA IV SCH (23:19)
[2024-07-13] VITALS: BP_SYST 113; BP_SYST 163; BP_SYST 75; BP_DIAS 44; BP_DIAS 64; BP_DIAS 76; TEMP 97.8; O2SAT 97
[2024-07-13 06:51] LABS: BASOPHILS % (AUTO) 0.2 % (0.0-2.0); HEMATOCRIT 34 % (39-51); HEMOGLOBIN 11.5 g/dL (13.5-17.5); LYMPHOCYTES # (AUTO) 0.8 K/uL (0.8-4.8); LYMPHOCYTES % (AUTO) 3.9 % (20.0-44.0); MEAN CORPUSCULAR HEMOGLOBIN 29 PG (26.0-33.0); MEAN CORPUSCULAR HGB CONC 33 g/dl (31.0-36.0); MEAN CORPUSCULAR VOLUME 86 fL (80-96); MONOCYTES # (AUTO) 2.3 K/uL (0.1-1.30); NEUTROPHILS # (AUTO) 16.1 K/uL (1.8-8.9); NEUTROPHILS % (AUTO) 83.9 % (43.0-81.0); PLATELET COUNT (AUTO) 229 K/uL (150-450); WHITE BLOOD COUNT (AUTO) 19.2 K/uL (4.3-11.0)
[2024-07-13 07:18] LABS: CALCIUM, SERUM 9.2 mg/dL (8.5-10.1); CREATININE 1.6 mg/dL (0.6-1.3); MAGNESIUM 2.2 mg/dL (1.8-2.4); PHOSPHORUS 2.5 mg/dL (2.5-4.9); POTASSIUM 4.2 mmol/L (3.5-5.1)
[2024-07-13] MEDS: AMLODIPINE BESYLATE 10 MG TABLET PO SCH (08:27)
[2024-07-13] MEDS: DONEPEZIL 5 MG TABLET PO SCH (08:34)
[2024-07-13] MEDS: FOLIC ACID 1 MG TABLET PO SCH (08:35)
[2024-07-13] MEDS: ASPIRIN 81 MG TAB.CHEW PO SCH (08:35)
[2024-07-13] MEDS: MULTIVITAMINS,THERAGRAN 1 UDTAB TABLET PO SCH (08:35)
[2024-07-13] MEDS: CALCIUM CARBONATE 500 MG TAB.CHEW PO SCH (08:35)
[2024-07-13] MEDS: ATORVASTATIN 10 MG TABLET PO SCH (08:35)
[2024-07-13] MEDS: MEMANTINE HCL 5 MG TABLET PO SCH (08:37)
[2024-07-13 08:38] VITALS: BP 108/42; TEMP 98.1; O2SAT 94
[2024-07-13] MEDS: CIPROFLOXACIN IV RTU 400 MG in PREMIX 1 EA IV SCH (11:29)
[2024-07-13] MEDS ORDERED: MELA5TAB PO (11:42)
[2024-07-13] MEDS ORDERED: ATOR80TA PO (11:42)
[2024-07-13] MEDS ORDERED: LISI20TA30 PO (11:42)
[2024-07-13] MEDS ORDERED: OMEG-167 PO (11:42)
[2024-07-13] MEDS ORDERED: APIX5TAB PO (11:42)
[2024-07-13] MEDS ORDERED: OMEP20TA20 PO (11:42)
[2024-07-13] MEDS ORDERED: AMLO-212 PO (11:42)
[2024-07-13] MEDS ORDERED: CHOL200059 PO (11:42)
[2024-07-13] MEDS ORDERED: LACT1CAP97 PO (11:42)
[2024-07-13] MEDS ORDERED: CYAN250010 PO (11:42)
[2024-07-13 12:40] LABS: THYROID STIMULATING HORMONE 0.85 uIU/mL (0.358-3.74)
[2024-07-13] MEDS: LISINOPRIL (20MG) 20 MG TABLET PO SCH (12:56)
[2024-07-13] MEDS: AMLODIPINE BESYLATE 5 MG TABLET PO SCH (12:57)
[2024-07-13] MEDS: MAGNESIUM OXIDE 400 MG TABLET PO SCH (12:58)
[2024-07-13] MEDS: METRONIDAZOLE 500MG/ NS 100ML 500 MG in PREMIX 1 EA IV SCH ×2 (13:06→20:31)
[2024-07-13] MEDS: APIXABAN 5 MG TABLET PO SCH (17:34)
[2024-07-13] MEDS: ATORVASTATIN 40 MG TABLET PO SCH (17:34)
[2024-07-13 18:00] VITALS: BP_SYST 129; BP_SYST 133; BP_SYST 94; BP_DIAS 57; BP_DIAS 58; BP_DIAS 71
[2024-07-13 20:00] VITALS: BP 134/56; TEMP 98.4; O2SAT 97
[2024-07-13] MEDS ORDERED: Medication Not On Formulary EA (Melatonin 5 MG) PO SCH (22:00)
[2024-07-14] VITALS (7 sets, daily range): BP systolic 139–162; BP diastolic 52–79; TEMP 97.1–98.4; O2SAT 95–97
[2024-07-14 07:20] LABS: APPEARANCE,URINE SLIGHTLY CLOUDY (CLEAR); BILIRUBIN,URINE NEGATIVE (NEGATIVE); BLOOD, URINE 1+ Ery/uL (NEGATIVE); COLOR,URINE DARK YELLOW (YELLOW); KETONES,URINE TRACE mg/dL (NEGATIVE); LEUKOCYTE ESTERASE ,URINE TRACE (NEGATIVE); NITRITE, URINE POSITIVE (NEGATIVE); PROTEIN,URINE 1+ mg/dl (NEGATIVE); UGLUCOSE NEGATIVE (NEGATIVE); UROBILINOGEN,URINE 0.2 EU/dL (0.2)
[2024-07-14 07:33] LABS: ADD URINE CULTURE YES; BACTERIA,URINE Few /HPF (None Seen); MUCUS,URINE Few /LPF (None Seen); SQUAMOUS EPITHELIAL CELL,UR 0-2 /HPF (None Seen); URINE AMORPHOUS URATE Few /HPF (None Seen)
[2024-07-14 08:25] LABS: CREATININE, URINE 367.6 MG/DL (30.0-125.0); URINE TOTAL PROTEIN 81.5 mg/dL (0-11.9)
[2024-07-14 08:40] LABS: EOSINOPHIL,URINE None Seen
[2024-07-14] MEDS: CYANOCOBALAMIN 500 MCG TABLET PO SCH (08:58)
[2024-07-14] MEDS: PANTOPRAZOLE 40 MG TABLET.DR PO SCH (08:59)
[2024-07-14] MEDS: LACTOBACILLUS RHAMNOSUS GG 1 EACH CAP.SPRINK PO SCH (09:00)
[2024-07-14] MEDS ORDERED: Medication Not On Formulary EA (Ubidecarenone (Coq-10) 300 MG) PO SCH (09:00)
[2024-07-14] MEDS ORDERED: Medication Not On Formulary EA (Omega-3 Fatty Acids/Fish Oil (Fish Oil 1,000 Mg Softgel) PO SCH (09:00)
[2024-07-14] MEDS: CHOLECALCIFEROL 1,000 UNIT TABLET (VIT D3) PO SCH (09:01)
[2024-07-14 11:03] LABS: BASOPHILS % (AUTO) 0.2 % (0.0-2.0); EOSINOPHILS # (AUTO) 0.1 K/uL (0.0-0.7); EOSINOPHILS % (AUTO) 0.7 % (0.0-6.0); HEMATOCRIT 30 % (39-51); HEMOGLOBIN 9.9 g/dL (13.5-17.5); LYMPHOCYTES # (AUTO) 1.5 K/uL (0.8-4.8); LYMPHOCYTES % (AUTO) 11.7 % (20.0-44.0); MEAN CORPUSCULAR HEMOGLOBIN 29 PG (26.0-33.0); MEAN CORPUSCULAR HGB CONC 33 g/dl (31.0-36.0); MEAN CORPUSCULAR VOLUME 86 fL (80-96); MONOCYTES # (AUTO) 1.5 K/uL (0.1-1.30); NEUTROPHILS # (AUTO) 9.5 K/uL (1.8-8.9); NEUTROPHILS % (AUTO) 75.4 % (43.0-81.0); PLATELET COUNT (AUTO) 197 K/uL (150-450); RED BLOOD CELL COUNT(AUTO) 3.48 MIL/uL (4.5-6.0); RED CELL DISTRIBUTION WIDTH 16.2 % (11.5-15.0); WHITE BLOOD COUNT (AUTO) 12.6 K/uL (4.3-11.0)
[2024-07-14 12:02] LABS: ALANINE AMINOTRANSFERASE 21 U/L (12-78); ALBUMIN 2.4 g/dL (3.4-5.0); ALKALINE PHOSPHATASE 72 U/L (46-116); ASPARTATE AMINOTRANSFERASE 34 U/L (15-37); BILIRUBIN,TOTAL 0.7 mg/dL (0.2-1.0); CALCIUM, SERUM 8.4 mg/dL (8.5-10.1); CARBON DIOXIDE 27 mmol/L (21-32); CHLORIDE 108 mmol/L (98-107); CREATININE 1.7 mg/dL (0.6-1.3); GLUCOSE 144 mg/dL (74-106); PHOSPHORUS 2.3 mg/dL (2.5-4.9); POTASSIUM 3.8 mmol/L (3.5-5.1); SODIUM SERUM 139 mmol/L (136-145); TOTAL PROTEIN, SERUM 6.3 g/dL (6.4-8.2); UREA NITROGEN, BLOOD 19 mg/dL (7-18)
[2024-07-14 15:18] LABS: CREATINE KINASE, TOTAL 172 U/L (39-308)
[2024-07-14] MEDS: K PHOS NEUTRAL 250 MG TABLET PO ONE (15:55)
[2024-07-15 01:07] LABS: FOLIC ACID > 20.0 ng/mL (>3.0)
[2024-07-15 04:00] VITALS: BP 156/61; TEMP 97.9; O2SAT 94
[2024-07-15 06:07] LABS: PTH, INTACT 42 pg/mL (15-65)
[2024-07-15 07:10] LABS: ALBUMIN 2.3 g/dL (3.4-5.0); BASOPHILS % (AUTO) 0.3 % (0.0-2.0); CALCIUM, SERUM 8.3 mg/dL (8.5-10.1); CREATININE 1.3 mg/dL (0.6-1.3); EOSINOPHILS # (AUTO) 0.2 K/uL (0.0-0.7); EOSINOPHILS % (AUTO) 1.6 % (0.0-6.0); HEMATOCRIT 29 % (39-51); HEMOGLOBIN 10.1 g/dL (13.5-17.5); LYMPHOCYTES # (AUTO) 1.7 K/uL (0.8-4.8); LYMPHOCYTES % (AUTO) 15.8 % (20.0-44.0); MEAN CORPUSCULAR HEMOGLOBIN 30 PG (26.0-33.0); MEAN CORPUSCULAR HGB CONC 34 g/dl (31.0-36.0); MEAN CORPUSCULAR VOLUME 86 fL (80-96); MONOCYTES # (AUTO) 1.6 K/uL (0.1-1.30); MONOCYTES % (AUTO) 15.5 % (2.0-12.0); NEUTROPHILS % (AUTO) 66.8 % (43.0-81.0); PHOSPHORUS 2.8 mg/dL (2.5-4.9); PLATELET COUNT (AUTO) 202 K/uL (150-450); POTASSIUM 3.5 mmol/L (3.5-5.1); RED BLOOD CELL COUNT(AUTO) 3.41 MIL/uL (4.5-6.0); RED CELL DISTRIBUTION WIDTH 16.4 % (11.5-15.0); TOTAL PROTEIN, SERUM 6.1 g/dL (6.4-8.2); WHITE BLOOD COUNT (AUTO) 10.5 K/uL (4.3-11.0)
[2024-07-15 07:30] VITALS: BP 161/75; TEMP 99.1; O2SAT 96
[2024-07-15 08:00] VITALS: BP_SYST 109; BP_SYST 141; BP_SYST 143; BP_DIAS 56; BP_DIAS 65; BP_DIAS 85; O2SAT 97
[2024-07-15] MEDS: NIFEdipine XL (30MG) 30 MG TAB PO SCH (09:30)
[2024-07-15 16:00] VITALS: BP 158/65; TEMP 98.2; O2SAT 96
[2024-07-15 20:00] VITALS: BP 139/62; TEMP 97.9; O2SAT 97
[2024-07-16 05:00] VITALS: BP 127/66; TEMP 98.1; O2SAT 96
[2024-07-16 07:00] VITALS: BP 114/62; TEMP 98.1; O2SAT 96
[2024-07-16 07:30] VITALS: BP 150/64; TEMP 98.2; O2SAT 96
[2024-07-16 07:40] LABS: BASOPHILS # (AUTO) 0.1 K/uL (0.0-0.2); BASOPHILS % (AUTO) 0.7 % (0.0-2.0); EOSINOPHILS # (AUTO) 0.2 K/uL (0.0-0.7); EOSINOPHILS % (AUTO) 2.3 % (0.0-6.0); HEMATOCRIT 32 % (39-51); HEMOGLOBIN 10.9 g/dL (13.5-17.5); LYMPHOCYTES # (AUTO) 1.9 K/uL (0.8-4.8); LYMPHOCYTES % (AUTO) 19.7 % (20.0-44.0); MEAN CORPUSCULAR HEMOGLOBIN 29 PG (26.0-33.0); MEAN CORPUSCULAR HGB CONC 34 g/dl (31.0-36.0); MEAN CORPUSCULAR VOLUME 85 fL (80-96); MONOCYTES # (AUTO) 1.5 K/uL (0.1-1.30); MONOCYTES % (AUTO) 14.9 % (2.0-12.0); NEUTROPHILS # (AUTO) 6.1 K/uL (1.8-8.9); NEUTROPHILS % (AUTO) 62.4 % (43.0-81.0); PLATELET COUNT (AUTO) 228 K/uL (150-450); RED BLOOD CELL COUNT(AUTO) 3.79 MIL/uL (4.5-6.0); RED CELL DISTRIBUTION WIDTH 15.8 % (11.5-15.0); WHITE BLOOD COUNT (AUTO) 9.8 K/uL (4.3-11.0)
[2024-07-16 08:00] LABS: ALBUMIN 2.6 g/dL (3.4-5.0); BILIRUBIN,TOTAL 0.9 mg/dL (0.2-1.0); CALCIUM, SERUM 8.6 mg/dL (8.5-10.1); CREATININE 1.3 mg/dL (0.6-1.3); MAGNESIUM 2.1 mg/dL (1.8-2.4); PHOSPHORUS 3.1 mg/dL (2.5-4.9); POTASSIUM 3.7 mmol/L (3.5-5.1); TOTAL PROTEIN, SERUM 6.6 g/dL (6.4-8.2)
[2024-07-16 08:43] VITALS: BP 150/64
[2024-07-16] MEDS ORDERED: CIPR500S2 PO (12:00)
[2024-07-16] MEDS ORDERED: METR500T PO (12:00)
[2024-07-16] MEDS ORDERED: AMLO-213 PO (12:00)
[2024-07-17] MEDS ORDERED: Medication Not On Formulary EA (Etanercept (Enbrel) 50 MG) SQ SCH (12:00)
[2024-07-17 12:07] LABS: VITAMIN B1 THIAMINE,WB 182.5 nmol/L (66.5-200.0)
== END 2024-07-16 15:40 | disposition home health service (06) | DRG 371 ==
LOC: ER 20:13 → TELE 22:03 → MED 07-16 11:24
PROVIDERS: ADMIT Nurse Practitioner Acute Care; ATTEND Nurse Practitioner Family
DX: A04.9 Bacterial intestinal infection, unspecified (principal); N17.0 Acute kidney failure with tubular necrosis; E44.1 Mild protein-calorie malnutrition; E86.9 Volume depletion, unspecified; G90.89 Other disorders of autonomic nervous system; N18.9 Chronic kidney disease, unspecified; I12.9 Hypertensive chronic kidney disease with stage 1 through stage 4 chronic kidney disease, or unspecified chronic kidney disease; F03.90 Unspecified dementia, unspecified severity, without behavioral disturbance, psychotic disturbance, mood disturbance, and anxiety; I45.10 Unspecified right bundle-branch block; M06.9 Rheumatoid arthritis, unspecified; E88.09 Other disorders of plasma-protein metabolism, not elsewhere classified; E78.5 Hyperlipidemia, unspecified; D63.8 Anemia in other chronic diseases classified elsewhere; E86.0 Dehydration; M89.8X9 Other specified disorders of bone, unspecified site; N28.1 Cyst of kidney, acquired; Z79.899 Other long term (current) drug therapy; Z85.46 Personal history of malignant neoplasm of prostate; Z79.82 Long term (current) use of aspirin; Z87.442 Personal history of urinary calculi; K42.9 Umbilical hernia without obstruction or gangrene
CPT/HCPCS: 36415; 70450-TC; 71045-TC; 76770-TC; 80048-TC; 80053-TC; 80061-TC; 80076-TC; 81001; 82550-TC; 82570-TC; 82607-TC; 83735-TC; 83880; 83921; 83970; 84100-TC; 84155; 84165; 84300-TC; 84425; 84443-TC; 84484-TC; 85025-TC; 87086-TC; 93307-TC; A4216; A4223; G0378; J0744; J7030